=== PATIENT | female | born 1955 | race Caucasian/White ===

== ENCOUNTER 2016-08-30 09:35 | Outpatient (CLI) | payer BC ==
--- NOTE | 2016-08-30 11:11 | DIAGNOSTIC IMAGING REPORT ---
PROCEDURE: MG BILATERAL SCREENING W/CAD INDICATION: SCREENING TECHNIQUE: Bilateral CC and MLO digital views. COMPARISON: Compared to 08/25/2015, 08/23/2014, and 08/03/2013. FINDINGS: Computer-aided detection applied. Moderately dense with a few dystrophic calcifications. Findings suggest development of an 8 mm ovoid nodular density in the lower outer right breast (0700 position, middle third). IMPRESSION: 1. Findings suggest development of an 8 mm ovoid nodular density in the lower outer right breast. While this may represent a cyst or normal intramammary lymph node, underlying solid mass should also be considered. Further mammographic views (true lateral view, CC and MLO spot compression views) are recommended. In addition, right breast ultrasound is recommended. RESULT CODE: 0- Incomplete; needs additional evaluation. A. A negative report should not delay biopsy if a dominant or clinically suspicious mass is present. 10-15% of cancers are not identified by x-ray. B. A negative report may reinforce clinical impression. C. Adenosis and dense breasts may obscure an underlying neoplasm. D. False positive reports average 6-10%. E.. A yearly screening mammogram is recommended. A reminder letter will be scheduled.
== END 2016-08-30 23:00 ==
LOC: MAM SRH 09:35
DX: Z12.31 Encounter for screening mammogram for malignant neoplasm of breast (principal)

== ENCOUNTER 2016-09-01 12:57 | Outpatient (CLI) | payer BC ==
--- NOTE | 2016-09-01 13:47 | DIAGNOSTIC IMAGING REPORT ---
PROCEDURE: MG UNILATERAL DIAG-RT W/CAD INDICATION: EVALUATE DENSITY SEEN ON SCREENING TECHNIQUE: True lateral digital view of the right breast. In addition, spot compression CC and MLO views were obtained of the lower outer right breast ( region of clinical concern). Finally, high-resolution right breast ultrasound was performed (18 mHz). COMPARISON: Comparison is made to screening mammogram on 08/30/2016. FINDINGS: MAMMOGRAM: Computer-aided detection applied. Confirmation of an ovoid 8 mm nodular density in the lower outer right breast (0700 position, middle third). BREAST ULTRASOUND: There is an 8 mm simple cyst in the lower outer right breast which corresponds to the mammographic nodule. IMPRESSION: 1. Confirmation of an 8 mm benign simple cyst in the lower outer right breast. 2. Otherwise negative mammogram right breast ultrasound. 3. Resume routine screening schedule (August 2017). 4. Findings discussed with the patient. RESULT CODE: 2- Benign finding(s). A. A negative report should not delay biopsy if a dominant or clinically suspicious mass is present. 10-15% of cancers are not identified by x-ray. B. A negative report may reinforce clinical impression. C. Adenosis and dense breasts may obscure an underlying neoplasm. D. False positive reports average 6-10%. E.. A yearly screening mammogram is recommended. A reminder letter will be scheduled.
== END 2016-09-01 23:00 ==
LOC: MAM SRH 12:57
DX: N60.01 Solitary cyst of right breast (principal)